=== PATIENT | male | born 1970 | race Caucasian/White ===

== ENCOUNTER 2017-05-30 10:07 | Inpatient (IN) | payer OTHER ==
[~2017-05-30] VITALS: Ht 175.3 cm; Wt 117.0 kg
[~2017-05-30 10:07] MED LIST: ARIPIPRAZOLE2 MG PO; IBUPROFEN800 M1 PO; PERCOCET 5-3251 EACH PO; TRAZODONE HCL100 M1 PO; VENLAFAXINE HC150 MG PO
[2017-05-30 11:08] LABS: ABSOLUTE BASOPHIL COUNT 0 /CUMM (0.0-0.2); ABSOLUTE EOSINOPHIL COUNT 0 /CUMM (0.0-0.7); ABSOLUTE GRANULOCYTE CT 2.7 /CUMM (1.4-6.5); ABSOLUTE LYMPH COUNT 1.3 /CUMM (1.2-3.4); ABSOLUTE MONOCYTE COUNT 0.3 /CUMM (0.10-0.60); BASOPHIL % 0.8 % (0.0-2.0); EOSINOPHIL % 0.6 % (0-5); GRANULOCYTE % 62.4 % (42.2-75.2); HEMATOCRIT 44.1 % (42-52); MEAN CORPUSCULAR HGB 30.2 PG (27.0-31.0); MEAN CORPUSCULAR VOLUME 88.9 FL (80.0-94.0); MEAN PLATELET VOLUME 7.7 FL (7.4-10.4); PLATELET COUNT 231 /CUMM (130-400); RBC DISTRIBUTION WIDTH 14.9 % (11.5-14.5); RED BLOOD CELL CT 4.96 /CUMM (4.70-6.10); WHITE BLOOD CELL COUNT 4.3 /CUMM (4.8-10.8)
[2017-05-30] MEDS ORDERED: METFORMIN HCL500 M3 PO (11:13)
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
[2017-05-31] VITALS (7 sets, daily range): BP systolic 122–158; BP diastolic 62–100
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
--- NOTE | 2017-05-31 21:14 | History & Physical ---
General Information and HPI MD Statement: I have seen and personally examined DARLINE GIRON and documented this H&P. The patient is a 46 year old M who presented with a patient stated chief complaint of [ medical evaluation ]. Source of Information: patient Exam Limitations: no limitations History of Present Illness: 46-year-old male with past medical history significant for recently diagnosed diabetes in March 2017, L4 L5 fusion, surgery for left biceps tendon tear with processes placement December 2016, bilateral carpal tunnel syndrome, right- sided partial ulnar nerve damage, 3 times surgery on left hand with residual sensory and motor loss, trauma to right ankle, brought in ER for reported suicidal ideation by his girlfriend. Patient denied any such ideation and wanted to leave. Patient was bitten by a cat on Monday night and he has left hand swelling and redness since then, progressively worsening. Denies any fever, chills, nausea, vomiting, there is mild decreased movement in the left hand but otherwise does not have any complaints. Recently he was told that his liver numbers were high and he had fatty changes in his liver on imaging, was supposed to follow up with the human intelligence outpatient, yet to schedule appointment. When he was being evaluated for high blood pressure he was suggested that he was borderline hypertensive but was not started on treatment. Patient has been compliant with his trazodone, Effexor, Abilify and recently started metformin. Denies smoking, chews tobacco, used to drink alcohol very heavily now cutting down drinks 4 days a week, one quarter every day. He has used cocaine in the past, clean since 2 years. He lost 23 lbs intentionally in 3 weeks with low carb diet. Allergies/Medications Allergies: Coded Allergies: NO KNOWN ALLERGIES (11/20/16) Home Med list Aripiprazole 2 MG TABLET 1 TAB PO DAILY MENTAL HEALTH (Reported) Metformin HCl 500 MG TABLET 1 TAB PO DAILY DIABETES (Reported) Trazodone HCl 100 MG TABLET 1 TAB PO QPM MENTAL HEALTH/SLEEP (Reported) Venlafaxine HCl (Venlafaxine HCl ER) 150 MG CAP.ER.24H 1 CAP PO DAILY MENTAL HEALTH (Reported) Compliance With Home Meds: GOOD Past History Travel History Traveled to [place] past 21 day No Medical History Neurological: CONCUSSION X 6, carpal tunnel syndrome bilaterally, right-sided ulnar nerve distribution sensory problem EENT: NONE Cardiovascular: NONE, borderline hypertension Respiratory: NONE Gastrointestinal: NONE, history of elevated liver enzymes Hepatic: NONE Renal: NONE Musculoskeletal: CARPAL TUNNEL Psychiatric: depression, insomnia Endocrine: diabetes Blood Disorders: NONE Cancer(s): NONE CUSTOMER SERVICE REPRESENTATIVE TEACHER/Reproductive: NONE History of MRSA: No History of VRE: No History of CDIFF: No Isolation History: Standard Surgical History Surgical History: L4 to L5 fusion, repair for left bicep tendon with processes Past Family/Social History Family History Relations & Conditions if any MOTHER FH: diabetes mellitus FATHER FH: diabetes mellitus Psychosocial History Where do you live? Home Who Do You Live With? child Services at Home: None Primary Language: Haitian Smoking Status: Never Smoked ETOH Use: heavy use Illicit Drug Use: used cocaine in the past Functional Ability ADLs Independent: dressing, eating, toileting, bathing. Ambulation: independent IADLs Independent: shopping, housework, finances, food prep, telephone, transportation , medication admin. Sexual History Past Sexual History Unobtainable at this time Employment History Employment Employed Profession/Employer Works tree-cutting and troubledriving Review of Systems Review of Systems Constitutional: Reports: no symptoms. EENTM: Reports: no symptoms. Cardiovascular: Reports: no symptoms. Respiratory: Reports: no symptoms. GI: Reports: no symptoms. Genitourinary: Reports: no symptoms. Musculoskeletal: Reports: no symptoms. Skin: Reports: change in skin color. Neurological/Psychological: Reports: no symptoms. Hematologic/Endocrine: Reports: no symptoms. Exam & Diagnostic Data Last 24 Hrs of Vital Signs/I&O Vital Signs Date Time Temp Pulse Resp B/P B/P Pulse O2 O2 Flow FiO2 Mean Ox Delivery Rate 05/31 2346 98.8 93 20 122/62 05/31 2345 98.8 93 20 122/62 05/31 2001 99.9 112 149/94 05/31 2000 99.9 112 149/94 05/31 1833 98.3 96 143/91 05/31 1620 98.9 102 20 158/92 05/31 1603 98.9 102 20 158/92 97 Room Air 05/31 1442 97.8 93 18 153/100 96 Room Air 05/31 1420 97.8 92 18 153/100 05/31 1212 98.8 92 18 157/90 97 Room Air 05/31 0904 98.0 88 18 160/85 96 Room Air 05/31 0633 97.9 72 18 124/77 96 Room Air Intake & Output 05/31 1600 06/01 0000 06/01 0800 Intake Total Output Total Balance Patient 117.027 kg Weight Physical Exam General Appearance Alert, Oriented X3, Cooperative, No Acute Distress Skin cellulitis left hand dorsal aspect, no fluctuation, pulses perfusion intact , no crepitus, very minimally restricted motion secondary to pain, scar gisela on left arm HEENT Atraumatic, PERRLA, EOMI Neck Supple, No JVD, No thryomegaly Lymphatic Cervical nl Cardiovascular Regular Rate, Normal S1, Normal S2, No Murmurs Lungs Clear to Auscultation, Normal Air Movement Abdomen Normal Bowel Sounds, Soft, No Tenderness, No Hepatospenomegaly Neurological Exam Findings: Normal Gait, Normal Speech, Strength at 5/5 X4 Ext, Normal Tone, Sensation Intact, Cranial Nerves 3-12 NL, Reflexes 2+ Cranial Nerves II through XII: 3-12 intact Extremities No Clubbing, No Cyanosis, No Edema, Normal Pulses Vascular Normal Pulses, Pulses Symmetrical Body Front and Back (Adult) 1) Cellulitis secondary to cat bite Last 24 Hrs of Labs/Ferny: Laboratory Tests 05/30 1341 Toxicology Urine Opiates Screen (>2000 NG/ML) < 100 Methadone Screen (>300 NG/ML) < 40 Barbiturate Screen (>200 NG/ML) < 60 Ur Phencyclidine Scrn (>25 NG/ML) < 6.00 Amphetamines Screen (>1000 NG/ML) < 100 U Benzodiazepines Scrn (>200 NG/ML) < 85 Urine Cocaine Screen (>300 NG/ML) < 50 Urine Cannabis Screen (>50 NG/ML) < 5.00 Urines Urinalysis LIGHT H Urine Color (YEL,AMB,STR) YEL Urine Clarity (CLEAR) HAZY H Urine pH (5.0 - 8.0) 8.0 Ur Specific Floyd (1.001 - 1.035) 1.015 Urine Protein (NEG,<30 MG/DL) TRACE H Urine Ketones (NEG) NEG Urine Nitrite (NEG) NEG Urine Bilirubin (NEG) NEG Urine Urobilinogen (0.1 - 1.0 EU/dl) 0.2 Ur Leukocyte Esterase (NEG) NEG Ur Microscopic SEDIMENT EXAMINED Urine RBC (0 - 5 /HPF) RARE Urine WBC (0 - 2 /HPF) RARE Urine Bacteria (NEG/NONE) RARE H Hyaline Casts (0/LPF) 1-3 H Urine Mucus (FEW,NONE) PACKD H Urine Hemoglobin (NEG) NEG Urine Glucose (N MG/DL) 100 H 04/03 1100 Chemistry Sodium (137 - 145 mmol/L) 146 H Potassium (3.5 - 5.1 mmol/L) 4.0 Chloride (98 - 107 mmol/L) 104 Carbon Dioxide (22 - 30 mmol/L) 25 Anion Gap (5 - 16) 18 H BUN (9 - 20 mg/dL) 7 L Creatinine (0.7 - 1.2 mg/dL) 0.8 Estimated GFR (>60 ml/min) > 60 BUN/Creatinine Ratio (7 - 25 %) 8.8 Glucose (65 - 99 mg/dL) 148 H Hemoglobin A1c (4.2 - 5.8 %) 7.0 H Calcium (8.4 - 10.2 mg/dL) 9.6 Total Bilirubin (0.2 - 1.3 mg/dL) 0.6 AST (17 - 59 U/L) 74 H ALT (21 - 72 U/L) 149 H Alkaline Phosphatase (< 127 U/L) 86 Total Protein (6.3 - 8.2 g/dL) 7.4 Albumin (3.5 - 5.0 g/dL) 4.5 Globulin (1.9 - 4.2 gm/dL) 2.9 Albumin/Globulin Ratio (1.1 - 2.2 %) 1.6 Triglycerides (<150 mg/dL) 130 Cholesterol (< 200 MG/DL) 246 H LDL Cholesterol, Calc (65 - 129 mg/dL) 169 H HDL Cholesterol (40 - 60 mg/dL) 51 Cholesterol/HDL Ratio (0.00 - 4.88 %) 5 H Free T4 (0.64 - 1.79 ng/dL) 1.17 Total T3 (0.97 - 1.69 ng/mL) 1.25 TSH &T3 &Free T4 Intrp (0.27 - 4.20 uIU/mL) 0.422 Hematology CBC w Diff NO MAN DIFF REQ WBC (4.8 - 10.8 /CUMM) 4.3 L RBC (4.70 - 6.10 /CUMM) 4.96 Hgb (14.0 - 18.0 G/DL) 15.0 Hct (42 - 52 %) 44.1 MCV (80.0 - 94.0 FL) 88.9 MCH (27.0 - 31.0 PG) 30.2 MCHC (33.0 - 37.0 G/DL) 34.0 RDW (11.5 - 14.5 %) 14.9 H Plt Count (130 - 400 /CUMM) 231 MPV (7.4 - 10.4 FL) 7.7 Gran % (42.2 - 75.2 %) 62.4 Lymphocytes % (20.5 - 51.1 %) 29.6 Monocytes % (1.7 - 9.3 %) 6.6 Eosinophils % (0 - 5 %) 0.6 Basophils % (0.0 - 2.0 %) 0.8 Absolute Granulocytes (1.4 - 6.5 /CUMM) 2.7 Absolute Lymphocytes (1.2 - 3.4 /CUMM) 1.3 Absolute Monocytes (0.10 - 0.60 /CUMM) 0.3 Absolute Eosinophils (0.0 - 0.7 /CUMM) 0 Absolute Basophils (0.0 - 0.2 /CUMM) 0 Serology Hepatitis A IgM Ab (NONREACTIVE) NONREACTIVE Hep Bs Antigen (NONREACTIVE) NONREACTIVE Hep B Core IgM Ab Conf (NONREACTIVE) NONREACTIVE Hepatitis C Antibody (NONREACTIVE) NONREACTIVE Toxicology Serum Alcohol (<10 MG/DL) 50.0 Assessment/Plan Assessment: # Depression and Suicidal Ideation : Agree with psychiatry plan # Left hand cellulitis : secondary to cat bite. Continue augmentin for 7 days, pain control. Watch closely for spread # DM : recently diagnosed, Continue metformin # Hx of alcohol use # mild transaminitis : probably secondary to alcoholism, conservative management # Mildly elevated BP in ER : closely watch, conservative management for now As Ranked By This Provider Problem List: 1. Depression Qualifiers Depression Type: unspecified Qualified Code: F32.9 - Major depressive disorder, single episode, unspecified 2. Cat bite 3. Cellulitis 4. DM (diabetes mellitus) 5. Transaminitis Miscellaneous Miscellaneous Documentation Attending Case Discussed With: Melvi QUIROS,Rigoberto Primary Care Physician: Dr. Mckeon Patient sees these Specialists unknown Level of Patient Care: [facility] Attending MD Review Statement Attending Statement Attending MD Statement: I interviewed and noted H and P
[2017-06-01] VITALS (7 sets, daily range): BP systolic 128–152; BP diastolic 88–98
--- NOTE | 2017-06-01 01:50 | Admission Certification ---
Admission Certification Certification Statement - As attending physician, I certify that at the time of - admission, based on clinical presentation, severity of - symptoms, need for further diagnostic testing and - therapeutic interventions, and risk of adverse outcomes - without in-hospital treatment, in my clinical assessment, - this patient requires an acute hospital stay for a minimum - of two nights or longer. I have also considered psychsocial - factors such as support system, advanced age, financial - issues, cognitive issues, and failed out-patient treatments, - past re-admission history, safety of patient, and lack of - compliance as applicable. Specific rationale supporting this admission is: SI
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
--- NOTE | 2017-06-01 11:06 | SOCIAL WORKER PROG NOTE PSYCH ---
Social Work Progress Note Progress Note Pt signed a release for [facility] and offers he has been compliant with treatment, and wants to follow up there. He states my gf is "crazy" and "she lied, and thats why I'm here" pt states she has paranoia and thinks there are implants in her teeth that allow everything that we do to be recorded, he spends time with her 2 days aweek and lives with his aprents 5 days week. He will not sign a release for his parents "they are old, and I dont want them involved". Pt states he is not suicidal, not homicidal and states he plans to return to his parents home and [facility]. "I cant mess up with probation, or I can get 4 years for a previous assault charge". Pt was cooperative but guarded.
[2017-06-02] VITALS (8 sets, daily range): BP systolic 127–144; BP diastolic 65–94
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
--- NOTE | 2017-06-02 14:13 | SOCIAL WORKER PROG NOTE PSYCH ---
Social Work Progress Note Progress Note Pt, Dr. Doyle and his parents had conference call, in which the parents informed pt he will be evicted on 06/06/17. Pt understands and didn't dispute it with them he did try to argue a few times but did remain in physical control. He denies wanting to hurt himself or anyone else, he is focused on staying out of shelter, and planning things with his children for the spring/summer. He has a follow up appt with [facility] on Monday at 5:30pm/ they also have walk in hours, pt is already at pt there, and reports compliance with them and probation.
[2017-06-03] VITALS (8 sets, daily range): BP systolic 131–143; BP diastolic 77–94
--- NOTE | 2017-06-03 12:52 | CP SOUTH PROGRESS NOTE PSYCH ---
Psych (Inpt) Progress Note Progress Note Include the following elements, when applicable: Involvement in the active treatment of the patient with behavioral observations of the patient and the patient's response to the treatment. Review of the ongoing treatment process in the context of the treatment plan. Indication of how multi-disciplinary staff members are carrying out the treatment plan. Plans for future interventions and recommendations for revision of the treatment plan. Liaison with other physicians/providers. Progress Note: Pt olivier does not have alcohol problem. Feels that cutting down from 1/2 gallon to 1L of alcohol daily is good and does not need to do more. Repeated several times "I don't have an alcohol problem." Denies SI or HI. Current Medications Sig/Magui Start time Last Medication Dose Route Stop Time Status Admin Acetaminophen 650 MG Q6P PRN 05/31 1215 AC 05/31 PO 2016 Al Hydroxide/Mg 30 ML Q4-6 PRN PRN 05/31 1215 AC Hydroxide PO Amoxicillin/ 875 MG Q12 05/31 1130 AC 06/03 Clavulanate Potassium PO 06/06 2300 0816 Aripiprazole 2 MG DAILY 05/31 1000 AC 06/03 PO 0816 Benztropine Mesylate 1 MG Q6P PRN 05/31 1215 AC PO Benztropine Mesylate 1 MG Q6P PRN 05/31 1215 AC IM Gabapentin 600 MG Q4P PRN 06/02 1215 AC PO Haloperidol 5 MG Q6P PRN 05/31 1215 AC PO Haloperidol 5 MG Q6P PRN 05/31 1215 AC IM Lorazepam 2 MG Q6P PRN 05/31 1215 AC IM Lorazepam 2 MG Q2P PRN 05/31 1215 AC 05/31 PO 2015 Lorazepam 1 MG Q2P PRN 05/31 1215 AC PO Magnesium Hydroxide 30 ML AT BEDTIME NEED.. 05/31 1215 AC PO Metformin HCl 500 MG DAILY 05/31 1000 AC 06/03 PO 0816 Multivitamins 1 TAB DAILY@0800 05/31 1215 AC 06/03 PO 0816 Nicotine 2 MG Q2P PRN 05/31 1215 AC 06/03 PO 1008 Trazodone HCl 100 MG QPM 05/31 2200 AC 06/02 PO 2211 Venlafaxine HCl 150 MG 0800 06/01 0800 AC 06/03 PO 0816 Vital Signs Date Time Temp Pulse Resp B/P B/P Pulse O2 O2 Flow FiO2 Mean Ox Delivery Rate 06/03 1156 90 131/77 06/03 1154 90 131/77 06/03 0812 96.5 91 143/90 06/03 0810 96.5 91 143/90 06/02 2000 97.9 93 144/94 06/02 1949 97.9 93 144/94 06/02 1545 96 129/76 06/02 1532 96 129/76 MSE General appearance: good hygiene and grooming; Attitude: cooperative; Eye contact: appropriate; Movement: no psychomotor agitation or slowing; Speech: nl fluency, nl rate/rhythm, nl volume, nl prosody; Mood: "fine" Affect: extremely irritable, flat, appropriate, constricted, non-labile, congruent; Thought process: linear and goal-directed; Thought content: denied SI or HI, no paranoid ideation; Perception: denied hallucinations- auditory, visual, does not appear to be responding to internal stimuli; I/J: limited A/P: Pt with MDD and significant AUD at pre-contemplative stage. - Tolerating detox w/o difficuly -Continue current medication regimen -Encourage integration into the milieu
[2017-06-04] VITALS (8 sets, daily range): BP systolic 133–146; BP diastolic 76–86
--- NOTE | 2017-06-04 13:17 | CP SOUTH PROGRESS NOTE PSYCH ---
Psych (Inpt) Progress Note Progress Note Include the following elements, when applicable: Involvement in the active treatment of the patient with behavioral observations of the patient and the patient's response to the treatment. Review of the ongoing treatment process in the context of the treatment plan. Indication of how multi-disciplinary staff members are carrying out the treatment plan. Plans for future interventions and recommendations for revision of the treatment plan. Liaison with other physicians/providers. Progress Note: Pt again noted that he has no problem with alcohol. Justified that no AUD because able to get down in 1L/day. Denies SI or HI. Feels that CPS is like prision. Current Medications Sig/Magui Start time Last Medication Dose Route Stop Time Status Admin Acetaminophen 650 MG Q6P PRN 05/31 1215 AC 05/31 PO 2016 Al Hydroxide/Mg 30 ML Q4-6 PRN PRN 05/31 1215 AC Hydroxide PO Amoxicillin/ 875 MG Q12 05/31 1130 AC 06/04 Clavulanate Potassium PO 06/06 2300 0817 Aripiprazole 2 MG DAILY 05/31 1000 AC 06/04 PO 0817 Benztropine Mesylate 1 MG Q6P PRN 05/31 1215 AC PO Benztropine Mesylate 1 MG Q6P PRN 05/31 1215 AC IM Gabapentin 600 MG Q4P PRN 06/02 1215 AC PO Haloperidol 5 MG Q6P PRN 05/31 1215 AC PO Haloperidol 5 MG Q6P PRN 05/31 1215 AC IM Lorazepam 2 MG Q6P PRN 05/31 1215 AC IM Lorazepam 2 MG Q2P PRN 05/31 1215 AC 05/31 PO 2014 Lorazepam 1 MG Q2P PRN 05/31 1215 AC PO Magnesium Hydroxide 30 ML AT BEDTIME NEED.. 05/31 1215 AC PO Metformin HCl 500 MG DAILY 05/31 1000 AC 06/04 PO 0817 Multivitamins 1 TAB DAILY@0800 05/31 1215 AC 06/04 PO 0817 Nicotine 2 MG Q2P PRN 05/31 1215 AC 06/04 PO 1213 Trazodone HCl 100 MG QPM 05/31 2200 AC 06/03 PO 2145 Venlafaxine HCl 150 MG 0800 06/01 0800 AC 06/04 PO 0817 Vital Signs Date Time Temp Pulse Resp B/P B/P Pulse O2 O2 Flow FiO2 Mean Ox Delivery Rate 06/04 1233 80 140/78 06/04 1215 80 140/78 06/04 0838 97.6 91 146/86 06/04 0806 97.5 91 146/86 06/03 2012 96 98 143/94 06/03 2000 97.3 67 143/94 06/03 1552 96 142/79 06/03 1545 96 142/79 MSE General appearance: good hygiene and grooming; Attitude: cooperative; Eye contact: appropriate; Movement: no psychomotor agitation or slowing; Speech: nl fluency, nl rate/rhythm, nl volume, nl prosody; Mood: "OK" Affect: extremely irritable, flat, appropriate, constricted, non-labile, congruent; Thought process: linear and goal-directed; Thought content: denied SI or HI, no paranoid ideation; Perception: denied hallucinations- auditory, visual, does not appear to be responding to internal stimuli; I/J: limited A/P: Pt with MDD and significant AUD at pre-contemplative stage, if that. - Tolerating detox w/o difficuly -Continue current medication regimen -Encourage integration into the milieu
[2017-06-05] MEDS ORDERED: NICORELIEF2 MG PO (07:39)
--- NOTE | 2017-06-05 07:41 | Patient Discharge Instructions ---
Psych Discharge Inst General Discharge Information Reason for Admission: allegations made by girlfriend that he made threats of self-harm and harming others. The patient denied that. Psy Discharge Primary Diag+ unspecified Depressive Di Psy Discharge Secondary Diag+ Alcohol use Disorder Summary Tests/Major Procedures Lab Cholesterol 246 MG/DL H 05/30/17 1100 Cholesterol/HDL Ratio 5 % H 05/30/17 1100 HDL Cholesterol 51 mg/dL 05/30/17 1100 Hemoglobin A1c 7.0 % H 05/30/17 1100 LDL Cholesterol, Calc 169 mg/dL H 05/30/17 1100 Triglycerides 130 mg/dL 05/30/17 1100 Studies Pending at DC: none Patient Instructions Contact Information Your Psychiatrist on [facility] was Leni QUIROS,John * If you are experiencing an emergency related to this hospitalization, please call [phone] to contact the treating psychiatrist or the psychiatrist-on- call. * To Request a copy of your medical records, please contact the Medical Records Department at [phone]. * To request results of studies pending at the time of discharge, please call [phone]. * Continue your Medications until directed to stop by your Healthcare provider. General Medication Information Please continue to take your new medications and your continued home medications , unless otherwise indicated on your discharge medication list, or unless directed by your MD or ENGINE SERVICE REPAIRER to stop them. Special Instructions Diet Diabetic Activity Normal Other Inst/Recommendations follow up with PCP - Tobacco Use Treatment Offered Post DC Medications Offered: Script Given-See Med List Post DC Tobacco Treatment Plan: Refused Tobacco Tx Pgm - EtOH/Drug Use D/O Treatment Offered Post DC Medications Offered: Med Not Indicated for D/O Post DC EtOH/SubAbuse TX Plan: Other SubAbuse/Dual Pgm Metabolic Screening Patient on a neuroleptic(s) . Enter below results for Hemoglobin A1C, and lipid panel if obtained during the last 365 days. BMI: 38.100 Blood Pressure: 133/78 Laboratory Results From [facility] (If applicable): Lab Cholesterol 246 MG/DL H 05/30/17 1100 Cholesterol/HDL Ratio 5 % H 05/30/17 1100 HDL Cholesterol 51 mg/dL 05/30/17 1100 Hemoglobin A1c 7.0 % H 05/30/17 1100 LDL Cholesterol, Calc 169 mg/dL H 05/30/17 1100 Triglycerides 130 mg/dL 05/30/17 1100 Advance Directives Does the Patient have Medical Advance Directives No/Refused further info Does Pt have Psychiatric Advance Directives? No/Refused further info Does Patient have a Designated Surrogate Decision Maker: No Information About Psychiatric Advance Directives Provided? Refused Discharge Plan Post Hospital Treatment Plan: [facility]
[2017-06-05 07:50] VITALS: BP 143/84
[2017-06-05 07:51] VITALS: BP 143/84
--- NOTE | 2017-06-05 08:49 | DISCHARGE SUMMARY REPORT-PSYCH ---
Visit Information Visit Dates/Diagnosis' Admission Date: 05/31/17 Discharge Date: 06/05/17 Reason for Admission: allegations made by girlfriend that he made threats of self-harm and harming others. The patient denied that. Psy Discharge Primary Diag: unspecified Depressive Di Psy Discharge Secondary Diag: Alcohol use Disorder Hospital Course Significant Lab Findings: Lab Cholesterol 246 MG/DL H 05/30/17 1100 Cholesterol/HDL Ratio 5 % H 05/30/17 1100 HDL Cholesterol 51 mg/dL 05/30/17 1100 Hemoglobin A1c 7.0 % H 05/30/17 1100 LDL Cholesterol, Calc 169 mg/dL H 05/30/17 1100 Triglycerides 130 mg/dL 05/30/17 1100 Course Complications: The patient did not have any complications while he was on the inpatient psychiatric unit. Consultations: The patient had a history and physical examination by the postpartum nurse. Please refer to the patient's electronic record for the H&P note. Allergies: Coded Allergies: NO KNOWN ALLERGIES (11/20/16) Hospital Course/TX Response: 06/01/2017: Dr. Candice MD's Impression and Plan: 46-year-old single white male with extensive history of impulsivity and several concussions and alcohol use presents to the emergency room after his girlfriend called 911 alleging that he made statements about hurting self himself and others. DSM 5 Diagnosis(es): Unspecified depressive disorder Alcohol use disorder, severe Diabetes mellitus type 2 Chronic back pain Several concussions Other specified personality disorder. Treatment Plan: Inpatient psychiatric care with safety checks every 15 minutes Nursing assessments, patient education, and vital signs monitoring Group therapy activity therapy and milieu therapy Social work to do a biopsychosocial assessment, obtain collateral information, and set up aftercare plans Monitor for withdrawals Patient will be evaluated daily by the psychiatrist to reevaluate his mental state and monitor medications. Continue Effexor and Abilify as prescribed by [facility] 06/02/2017: Reduce CIWA to every 4 hours Increase as needed gabapentin to 600 mg every 4 hours as needed 06/03/2017 and 06/04/2017: Dr. Charo MD, covering psychiatrist for the weekend No medication changes 06/05/2017: Vital signs: Blood pressure 143/84 mmHg, pulse 98 bpm, temperature 97.4F Mental Status Examination The patient was alert and oriented to time, place, and person. Normal speech. He seemed to be in good spirits, cooperative and calm , normal psychomotor activity, no abnormal behaviors, full range of affect, Denied feeling depressed, denied having thoughts of suicide Denied having thoughts of homicide, denied hallucinations, denied feeling paranoid, there were no delusions during the interview, coherent, no thought disorganization, no evidence of short-term memory impairment during the interview Assessment: A 46-year-old single White male with extensive history of impulsivity, several concussions, several incarcerations, and alcohol use presents to the emergency room after his girlfriend called 911 alleging that he made statements about hurting self himself and others. He has shown moderate improvement in behavioral control and consistently denied thoughts of self-harm or violence. Diagnoses: Unspecified Depressive disorder; Alcohol use disorder, severe; Diabetes mellitus type 2 Chronic back pain Several concussions Antisocial personality disorder Plan: D/C Home with F/U with [facility] Discharge HBIPS - Tobacco Use Treatment Offered Post DC Medications Offered: Script Given-See Med List Post DC Tobacco Treatment Plan: Refused Tobacco Tx Pgm - EtOH/Drug Use D/O Treatment Offered Post DC Medications Offered: Med Not Indicated for D/O Post DC EtOH/SubAbuse TX Plan: Other SubAbuse/Dual Pgm Metabolic Screening - Screen if on a Neuroleptic Medication - Metabolic screening should include: - Blood Pressure, BMI, Glucose or Hgb A1c, & a - Lipid profile from within the past 365 days. Metabolic Screening () Not Applicable, patient not on a neuroleptic. OR () Patient on a neuroleptic(s) . Enter below results for Hemoglobin A1C, and lipid panel if obtained during the last 365 days. BMI: 38.100 Blood Pressure: 143/84 Laboratory Results From [facility] (If applicable): Lab Cholesterol 246 MG/DL H 05/30/17 1100 Cholesterol/HDL Ratio 5 % H 05/30/17 1100 HDL Cholesterol 51 mg/dL 05/30/17 1100 Hemoglobin A1c 7.0 % H 05/30/17 1100 LDL Cholesterol, Calc 169 mg/dL H 05/30/17 1100 Triglycerides 130 mg/dL 05/30/17 1100 Discharge Instructions General Discharge Information Multiple Neuroleptics: ([X]) Not Applicable Discharge Diet Diabetic Discharge Activity Normal DC Disposition: Home to a friend Referrals Ordered Referrals Provider Referral 06/13/17 For Groups: [JOSE] JOSE appt. 06/13/17 5:30pm with therapist [address] [place] [address] Provider Referral 06/14/17 For Groups: Outpatient Psychiatry [facility] 06/14/[address] [place] [address] Prescriptions Continue taking these medications: Venlafaxine HCl (Venlafaxine HCl ER) 150 MG CAP.ER.24H 1 Capsule ORAL DAILY Qty = 30 Comments: Last Taken: 06/05/17 Time: 0900 Trazodone HCl (Trazodone HCl) 100 MG TABLET 1 Tablet ORAL Every night Qty = 30 Comments: Last Taken: 06/04/17 Time: 2200 Aripiprazole (Aripiprazole) 2 MG TABLET 1 Tablet ORAL DAILY Qty = 30 Comments: Last Taken: 06/05/17 Time: 0900 Metformin HCl (Metformin HCl) 500 MG TABLET 1 Tablet ORAL DAILY Qty = 30 Comments: Last Taken: 06/05/17 Time: 0900 Start taking the following new medications: Nicotine (Nicorelief) 2 MG GUM 2 Milligram ORAL EVERY 2 HOURS NEEDED as needed for nicotine craving Qty = 60 No Refills Comments: Last Taken: 06/05/17 Time: 0600 Other Inst/Recommendations follow up with PCP Studies Pending at Discharge none Copies To: JOSE
--- NOTE | 2017-06-05 08:55 | CP SOUTH PROGRESS NOTE PSYCH ---
Psych (Inpt) Progress Note Progress Note I reviewed the psychiatric notes by Dr. Mancilla over the weekend of June 03 and 2017 Vital signs: Blood pressure 143/84 mmHg, pulse 98 bpm, temperature 97.4F Mental Status Examination The patient was alert and oriented to time, place, and person. Normal speech. He seemed to be in good spirits, cooperative and calm , normal psychomotor activity, no abnormal behaviors, Full range of affect, Denied feeling depressed, denied having thoughts of suicide Denied having thoughts of homicide, denied hallucinations Denied feeling paranoid, there were no delusions during the interview, coherent, no thought disorganization, no evidence of short-term memory impairment during the interview Assessment: A 46-year-old single White male with extensive history of impulsivity, several concussions, several incarcerations, and alcohol use presents to the emergency room after his girlfriend called 911 alleging that he made statements about hurting self himself and others. 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
[2017-06-05 11:49] VITALS: BP 143/94
[2017-06-05 11:51] VITALS: BP 143/94
--- NOTE | 2017-06-05 13:05 | SOCIAL WORKER PROG NOTE PSYCH ---
Social Work Progress Note Progress Note Met with this patient for the first time as he prepared for discharge today. He continues to deny that he threatened his girlfriend or his own life and stated the girlfriend made this up. He is looking to continue a restraining order against her as he wants nothing to do with her at this point. Reports that he will be living with a friend Tyson. Talked about his kids and going fishing. Appeared goal oriented. Asked for a letter regarding hospitalization dates for his PO at [facility]. He has a follow up appt. at [facility] in [place] next Monday. Denies any acute symptoms/ concerns at this time. Father will be picking him up by noon.
--- NOTE | 2017-06-05 13:06 | SOCIAL WORKER PROG NOTE PSYCH ---
Social Work Progress Note Faxed Referral(s) Referred To: JOSE Nash Transition of Care Documents sent: Health Summary [facility] [place] #: [phone] Faxed by: Mary Jane Casper Date faxed: 06/05/17 Time Faxed: [phone]
== END 2017-06-05 11:56 | DRG 754 ==
LOC: ERH 10:07 → ERHI 05-31 12:05 → CP SOUTH 05-31 12:05 → ENRESERV 05-31 23:59 → CP SOUTH 06-01 17:13
PROVIDERS: Physician Assistant
DX: F32.9 Major depressive disorder, single episode, unspecified (principal); Z72.89 Other problems related to lifestyle
CPT/HCPCS: 80307; 81001; 93005; 93010; G0463; G0480; J0515; J1630; J3490